=== PATIENT | female | born 1970 | race Two or more races ===

== ENCOUNTER 2020-05-06 15:54 | Emergency (ER) | payer MEDICAID ==
[~2020-05-06] VITALS: Ht 167.6 cm; Wt 65.8 kg
[2020-05-06] MEDS ORDERED: LORazepam 2MG/ML-1ML VIAL IV ONE (16:15)
[2020-05-06] MEDS ORDERED: SODIUM CHLORIDE 0.9% 500 ML IVB ONE (16:34)
[2020-05-06] MEDS ORDERED: SODIUM CHLORIDE 0.9% 1,000 ML IV ONE (16:34)
[2020-05-06 17:45] LABS: INR 1.09 (0.9-1.15); Partial Thromboplastin Time 24.6 sec (23.0-31.2)
[2020-05-06 17:46] LABS: Albumin 3.6 g/dL (3.4-5.0); Anion Gap 8 (5-15); Blood Urea Nitrogen 9 mg/dL (7-18); Calcium 8.1 mg/dL (8.5-10.1); Carbon Dioxide 26 mmol/L (21-32); Chloride 99 mmol/L (98-107); Glucose 125 mg/dL (74-106); Magnesium 1.9 mg/dL (1.6-2.6); Sodium 133 mmol/L (136-145)
[2020-05-06 17:52] LABS: Alanine Aminotransferase 36 U/L (13-56); Alkaline Phosphatase 104 U/L (45-117); Aspartate Aminotransferase 82 U/L (15-37); BUN/Creatinine Ratio 9.8; Bilirubin, Total 1.6 mg/dL (0.2-1.0); GFR African American 83 mL/min; GFR Non-African American 69 mL/min; Total Protein 7.2 g/dL (6.4-8.2)
[2020-05-06 17:52] LABS: Basophils # (auto) 0 10 ^3/uL (0-0.2); Basophils % (auto) 0.5 % (0.0-2.0); Eosinophils # (auto) 0 10 ^3/uL (0-0.8); Eosinophils % (auto) 0.5 % (0.0-7.0); Hematocrit 37.5 % (36.0-46.0); Hemoglobin 12.7 g/dL (12.2-16.2); Lymphocytes # (auto) 0.8 10 ^3/uL (0.4-5.4); Lymphocytes % (auto) 13.4 % (10.0-50.0); Mean Corpuscular Hemoglobin 30.4 pg (28.0-32.0); Mean Corpuscular Volume 89.6 fL (80.0-100.0); Monocytes # (auto) 0.4 10 ^3/uL (0-1.3); Monocytes % (auto) 7.1 % (0.0-12.0); Neutrophils # (auto) 4.5 10 ^3/uL (1.6-8.6); Neutrophils % (auto) 78.5 % (37.0-80.0); Nucleated Red Blood Cells % 0.1 %; Platelet Count (auto) 95 10^3/uL (140-450); Red Blood Cells 4.18 10^6/uL (4.0-5.20); Red Cell Distribution Width 14.9 % (11.8-14.3); White Blood Cell 5.8 10^3/uL (4.4-10.8)
[2020-05-06 18:16] LABS: Potassium 2.6 mmol/L (3.5-5.1)
[2020-05-06] MEDS ORDERED: POTASSIUM EFFERVESENT TAB 25 MEQ PO ONE (18:30)
[2020-05-06 21:00] VITALS: BP 121/71
== END 2020-05-06 22:35 | disposition home or self-care (01) ==
LOC: EDSEX 15:54 → EDBD 15:54 → ER 15:54
DX: R55 Syncope and collapse (principal)
CPT/HCPCS: 36415; 70450; 71046; 80053; 83735; 84443; 84484; 85025; 85610; 85730; 93005; 96361; 96374; 99285; J2060; J7030